=== PATIENT | female | born 1980 | race Caucasian/White ===

== ENCOUNTER 2025-07-02 08:18 | Emergency (ER) | payer OTHER, SELFPAY ==
[2025-07-02 08:24] VITALS: BP 102/75
--- NOTE | 2025-07-02 08:41 | ED.GENMED ---
History of Present Illness
General
Chief Complaint: Anal/Rectal Problem
Source: patient
Exam Limitations: none
Time Seen by Provider: 07/02/25 08:34
History of Present Illness
History of Present Illness:
See MDM
Past History
Past History
ED Past Medical History: None
ED Past Surgical History: None
Social History
Tobacco: Non-smoker
Alcohol: None
Phy Exam
Physical Exam
Physical Exam:
See MDM
Course
Orders/Labs/Results
Orders:
Orders
07/02/25 08:57
CT Abd/pelvis W Iv Cont Urgent
Comment:
Reason For Exam: lower abd and rectal pain
Lidocaine 2.5%/Prilocaine 2.5% [Emla Cream] 1 gram TOPICAL NOW STA
Test Result ONCE
07/02/25 09:10
Complete Blood Count/With Diff Urgent
Comprehensive Metabolic Panel Urgent
HCG, Serum Qualitative Screen Urgent
Abnormal Lab Results
07/02/25
09:10
RBC 4.15 L 10^6/uL
(4.20-5.40)
MCV 100.2 H fL
(81.0-99.0)
MCH 34.7 H pg
(27.0-31.0)
RDW 11.3 L %
(11.5-14.5)
Absolute Lymphs (auto) 0.7 L 10^3/uL
(1.2-3.4)
Neutrophils % 82.0 H %
(42.2-75.2)
Lymphocytes % 10.7 L %
(20.5-51.1)
Total Protein 8.3 H g/dl
(6.3-8.2)
07/02/25 09:10
07/02/25 09:10
Vital Signs
Initial and Last Documented VS:
Initial Vital Signs
Temp Pulse Resp BP Pulse Ox
98.1 F 99 18 102/75 98
07/02/25 08:24 07/02/25 08:24 07/02/25 08:24 07/02/25 08:24 07/02/25 08:24
Last Documented Vital Signs
Temp Pulse Resp BP Pulse Ox
98.1 F 99 18 102/75 98
07/02/25 08:24 07/02/25 08:24 07/02/25 08:24 07/02/25 08:24 07/02/25 08:43
MDM/Problems Addressed
Differential Diagnosis Includes:
Note:
CHIEF COMPLAINT(S)
Rectal pain and potential rectal prolapse or hemorrhoid.
HISTORY OF PRESENT ILLNESS
The patient is a 24-year-old female who presents with complaints suggestive of a rectal issue, possibly a prolapsed rectum or hemorrhoid. The onset of symptoms is not specified but includes significant pain upon sitting and walking. The patient
describes the pain as severe enough to cause sweating and necessitate the use of cool wet washcloths to dab the area, as wiping is too painful. The patient has noted the condition involves something that protrudes. She reports it hurts; however, she
is unsure if it is a rectal prolapse or hemorrhoid. She has a past history of hemorrhoids but has never required surgical intervention. No history of colonoscopy results was mentioned, but a consultation occurred with a tube mill operator
approximately 10 to 15 years ago during , at which time hemorrhoids were noted.
PHYSICAL EXAM
General: Alert, no acute distress.
Skin: Warm, dry.
Head: Normocephalic, atraumatic
Neck: Appears supple, trachea midline.
Eyes, Ears, Nose, Mouth, and Throat: Moist mucous membranes
Cardiovascular: No signs of cyanosis
Respiratory: Respirations are non-labored.
Abdomen: Non-distended. Soft
Rectal: Multiple external hemorrhoids that are nonthrombosed. Questionable fissure in the 12 o'clock position
Musculoskeletal: No deformities
Neurological: No focal neurological deficit observed.
Psychiatric: Cooperative, appropriate mood and affect.
PLAN
The plan is to first perform a physical examination to determine if the issue is indeed an extensive external hemorrhoid, perhaps requiring intervention, or if it might be an internal hemorrhoid that has prolapsed. The consideration of involvement
by colorectal surgery will depend on whether immediate action is necessary. If the condition is not urgent, colorectal surgery consultations could occur in the future for a more definitive treatment.
DIFFERENTIAL DIAGNOSIS
The Differential Diagnosis includes, in no particular order and is not limited to:
- Rectal prolapse
- External hemorrhoid
- Internal hemorrhoid with prolapse
- Anorectal abscess
- Anal fissure
- Rectal mass
- Infectious proctitis
- Colorectal cancer
- Inflammatory bowel disease
- Thrombosed hemorrhoid
SUMMARY OF ENCOUNTER
The patient presented to the emergency department with complaints of severe rectal pain, with symptoms suggestive of hemorrhoids or possible rectal prolapse. The patient has a history of hemorrhoid problems, particularly noted during years
ago. The plan involves a physical examination to determine the exact condition and the potential need for intervention either immediately or with a planned follow-up with colorectal surgery services.
MEDICAL DECISION MAKING
- Number and Complexity of Problems Addressed: Chronic conditions affecting care include a history of hemorrhoids with current symptomatic presentation suggestive of a possible prolapse or large hemorrhoid. Differential diagnosis considered includes
rectal prolapse, external or internal hemorrhoids, anorectal pathology, or infectious/inflammatory conditions.
Category 1:
- Physical examination and possible discussion with a nurse for immediate assessment.
Category 3:
- Discussion of management with potential involvement of colorectal surgery, depending on physical examination findings.
- Risk: Evaluation of complications of untreated hemorrhoids, including the potential need for surgical intervention. Possible consideration for admission if immediate surgical intervention is required after the examination.
CARE-UPDATE
07/02/25 - 09:04
Rectal exam revealed multiple external hemorrhoids, none of which are thrombosed. A subtle anal fissure was identified, likely contributing to the patients pain. Recommendation to start stool softeners and a prescription for docusate sodium
provided. Discussed outpatient follow-up plan with a colorectal surgeon due to persistent abdominal, rectal, and anal pain. For the time being, will place lidocaine cream on the area
SUMMARY OF ENCOUNTER
The patient presented with severe rectal pain consistent with external hemorrhoids. Upon examination, the hemorrhoids did not appear to be thrombosed. A CT scan revealed incidental findings of pelvic congestion syndrome. The management strategy
involved pain relief and planning for follow-up care.
PLAN
The plan includes the application of lidocaine gel and Proctofoam to the rectal area for pain relief. An outpatient follow-up with colorectal surgery and consultation with the patients sign writer hand (PHONE SCREENER) for the pelvic congestion syndrome are
recommended.
MEDICATION RECONCILIATION
Lidocaine gel and Proctofoam were prescribed for rectal application to manage pain and irritation.
FOLLOW-UP INSTRUCTIONS
The patient is advised to follow up with a colorectal surgeon and consult with their sign writer hand regarding the incidental finding of pelvic congestion syndrome.
MEDICAL DECISION MAKING
- Number and Complexity of Problems Addressed: Chronic conditions affecting care include the history of hemorrhoids with current symptomatic presentation. Differential diagnosis includes rectal prolapse, external or internal hemorrhoids, anorectal
pathology, or infectious/inflammatory conditions.
- Data:
- Category 1: A CT scan was conducted, revealing incidental findings of pelvic congestion syndrome.
- Category 3: Discussion of management with other healthcare providers is recommended, including a colorectal surgeon for persistent symptoms.
- Risk: Prescription medication management included lidocaine gel and Proctofoam. Consideration for outpatient follow-up was deemed sufficient since no immediate life-threatening conditions required emergency surgical intervention.
DIAGNOSIS
- External Hemorrhoids (ICD-10: K64.8)
- Incidental Pelvic Congestion Syndrome (ICD-10: I87.2)
*Pulse Oximetry
SaO2: 98
Oxygen Mode of Delivery: Room air
Patient hypoxic: no
*Critical Care Note
Total Time (30-74mins, 75-104mins- exclusive of procedures): Not Applicable
ED Attending Note
-
Portions of this chart may have been created with voice recognition software.� Occasional wrong word or��sound alike� substitutions may have occurred due to the inherent limitations of voice recognition software.
Discharge Plan
Departure
Patient Disposition: Home (Routine Discharge)
Date of Disposition: 07/02/25
Time of Disposition: 10:58
Patient with high blood pressure during this ER visit?: No
Discharge Problem:
External hemorrhoids
Instructions: Hemorrhoids (DC), How to Do a Sitz Bath
Prescriptions:
New
Proctofoam HC 1-1 % foam
1 applic FL QID PRN (Reason: hemorrhoids) Qty: 10 0RF
lidocaine 4 % gel
1 applic topical BID PRN (Reason: Pain) Qty: 30 0RF
Referrals:
Wilson Alves MD [Active, ColoRectal]
Activity Restrictions/Additional Instructions:
Please return for any worsening symptoms.
You may return at any time if you have further concerns.
Please follow up with your doctor at the first available appointment, preferably this week.
Please make an appointment with colorectal surgeon.
Thank you for choosing [facility].
Interventions
Interventions:
*Risk Screen - Suicide Last Done: 07/02/25 08:24
*General Assessment Last Done: 07/02/25 08:24
*Neglect/Abuse Screening Last Done: 07/02/25 08:24
Discharge Date and Time
Print Language: [id number]
[2025-07-02] MEDS: EMLA CREAM 1 GRAM TOPICAL (09:23)
[2025-07-02 09:27] LABS: Hematocrit 41.6 % (37.0-47.0); Hemoglobin 14.4 g/dL (12.0-16.0); Mean Corp Hgb Conc. 34.6 g/dL (33.0-37.0); Mean Corpuscular Volume 100.2 fL (81.0-99.0); Nucleated Red Blood Cells % 0 %; Platelet Count 240 10^3/uL (130-400); Red Cell Dist. Width 11.3 % (11.5-14.5)
[2025-07-02 09:37] LABS: HCG, Serum Qualitative Screen Negative
[2025-07-02 09:39] LABS: ALT (SGPT) 24 U/L (0-35); AST (SGOT) 30 U/L (14-36); Albumin 4.8 g/dl (3.5-5.0); Alkaline Phosphatase 45 U/L (38-126); Blood Urea Nitrogen 9 mg/dl (7-17); Calcium 9.6 mg/dl (8.4-10.2); Carbon Dioxide 29 mmol/L (22-30); Chloride 102 mmol/L (98-107); Glucose 90 mg/dl (70-99); Potassium 4.1 mmol/L (3.5-5.1); Sodium 137 mmol/L (135-145); Total Protein 8.3 g/dl (6.3-8.2); eGFR > 60.00
[2025-07-02 11:08] VITALS: BP 128/64
== END 2025-07-02 11:08 | disposition home or self-care (01) ==
LOC: EMR 08:18
PROVIDERS: EMERGENCY PHYSICIAN Student in an Organized Health Care Education/Training Program; FAMILY PHYSICIAN Family Medicine
DX: K64.4 Residual hemorrhoidal skin tags (principal); K60.2 Anal fissure, unspecified; N94.89 Other specified conditions associated with female genital organs and menstrual cycle
CPT/HCPCS: 99284; 74177; 80053; 84703; 85025; Q9967